=== PATIENT | female | born 1970 | race African-American/Black ===

== ENCOUNTER 2017-10-27 21:44 | Emergency (ER) | payer OTHER ==
[~2017-10-27] VITALS: Ht 165.1 cm; Wt 167.0 kg
[~2017-10-27 21:44] MED LIST: ALPR1 PO; BUPR150T3 PO; FLEX10TA PO; GLUCTAB PO; KETO10 PO; MEVA40TA PO; PAXI20TA PO
[2017-10-27 21:47] VITALS: BP 144/65; PULSE 96; RESP 20; TEMP 97.7; O2SAT 98
[2017-10-28 00:02] VITALS: BP 137/68; PULSE 93; RESP 18; O2SAT 99
[2017-10-28] MEDS ORDERED: SODIUM CHLORIDE 0.9% FLUSH 10 ML FLUSH IVF PRN (00:15)
--- NOTE | 2017-10-28 00:43 | RADRPT ---
EXAM DATE/TIME: 10/28/2017 00:21 [facility] COMPARISON: No previous studies available for comparison. INDICATIONS : Bilateral lower extremity swelling. MEDICAL HISTORY : Diabetes mellitus type II. SURGICAL HISTORY : None. ENCOUNTER: Initial ACUITY: 1 day PAIN SCORE: 0/10 LOCATION: Bilateral chest FINDINGS: A single view of the chest demonstrates the lungs to be symmetrically aerated without evidence of mas s, infiltrate or effusion. The cardiomediastinal contours are unremarkable. Osseous structures are intact. CONCLUSION: No acute disease. Yevgeniy Ahn MD on October 28, 2017 at 0:41 Board Certified Radiologist. This report was verified electronically.
[2017-10-28 01:09] LABS: BILIRUBIN, URINE NEG (NEG); BLOOD, URINE SMALL (NEG); GLUCOSE,URINE NEG (NEG); KETONE, URINE NEG (NEG); MUCUS URINE FEW /lpf (OCC); NITRITE,URINE NEG (NEG); SQUAMOUS EPITHELIAL CELL URINE 1 /hpf (0-5); URINE COLOR YELLOW (YELLW/STRAW); URINE LEUKOCYTE ESTERASE TRACE (NEG)
[2017-10-28 01:25] LABS: ALBUMIN 3.1 GM/DL (3.4-5.0); ALKALINE PHOSPHATASE 85 U/L (45-117); ALT (GPT) 29 U/L (10-53); AST (GOT) 32 U/L (15-37); BICARBONATE 30.2 MEQ/L (21.0-32.0); BLOOD UREA NITROGEN 18 MG/DL (7-18); CALCIUM 8.9 MG/DL (8.5-10.1); CHLORIDE 105 MEQ/L (98-107); CREATININE 0.68 MG/DL (0.50-1.00); GLOMERULAR FILTRATION RATE 113 ML/MIN (>89); GLUCOSE,RANDOM 96 MG/DL (74-106); SODIUM (NA) 138 MEQ/L (136-145); TOTAL BILIRUBIN ADULT 0.3 MG/DL (0.2-1.0); TOTAL PROTEIN 7.6 GM/DL (6.4-8.2)
--- NOTE | 2017-10-28 01:42 | RADRPT ---
EXAM DATE/TIME: 10/28/2017 01:09 [facility] COMPARISON: No previous studies available for comparison. INDICATIONS : Bilateral lower extremity swelling. MEDICAL HISTORY : Hypercholesterolemia. Deep venous thrombosis. Diabetes. SURGICAL HISTORY : Tubal ligation. section. Cardiac catheterization. Lap band. Dilation and curettage. Left knee surgery. Left foot surgery. ENCOUNTER: Subsequent ACUITY: 1 day PAIN SCORE: 4/10 LOCATION: Bilateral legs. TECHNIQUE: Venous ultrasound of the left and right leg was performed from the inguinal ligament to the proximal calf. Real-time, color Doppler and spectral tracing, compression and augmentation techniques were us ed. FINDINGS: RIGHT LEG: There is normal compressibility of the deep venous system from the inguinal region to the proximal ca lf. No echogenic clot is seen in the lumen of the common femoral, femoral, popliteal, and posterior tibial veins. There is a normal response of the venous system to proximal and distal augmentation an d respiration. There is a Ortega's cyst in the right popliteal fossa measuring 6.2 x 1.5 x 2.1 cm. LEFT LEG: There is normal compressibility of the deep venous system from the inguinal region to the proximal ca lf. No echogenic clot is seen in the lumen of the common femoral, femoral, popliteal, and posterior tibial veins. There is a normal response of the venous system to proximal and distal augmentation an d respiration. CONCLUSION: 1. No evidence of deep venous thrombosis. 2. Moderate to large Ortega's cyst in the right popliteal fossa. Yevgeniy Ahn MD on October 28, 2017 at 1:39 Board Certified Radiologist. This report was verified electronically.
[2017-10-28 02:17] LABS: AUTOMATED NEUTROPHIL # 2.8 TH/MM3 (1.8-7.7); BASOPHIL % 0.7 % (0.0-2.0); EOSINOPHIL # 0.3 TH/MM3 (0-0.4); EOSINOPHIL % 5.2 % (0.0-4.0); HEMATOCRIT 36.9 % (35.0-46.0); HEMOGLOBIN 12.4 GM/DL (11.6-15.3); LYMPH % 39.3 % (9.0-44.0); LYMPHOCYTE # 2.3 TH/MM3 (1.0-4.8); MEAN CELL VOLUME 86.8 FL (80.0-100.0); MEAN CORPUSCULAR HEMOGLOBIN 29.1 PG (27.0-34.0); MEAN CORPUSCULAR HGB CONC 33.5 % (32.0-36.0); MEAN PLATELET VOLUME 6.9 FL (7.0-11.0); MONO % 6.7 % (0.0-8.0); MONOCYTE # 0.4 TH/MM3 (0-0.9); NEUT % 48.1 % (16.0-70.0); PLATELET COUNT 361 TH/MM3 (150-450); RED BLOOD COUNT 4.25 MIL/MM3 (4.00-5.30); RED CELL DISTRIBUTION WIDTH 16.2 % (11.6-17.2); WHITE BLOOD COUNT 5.8 TH/MM3 (4.0-11.0)
[2017-10-28 02:23] VITALS: PULSE 86; RESP 18; O2SAT 97
[2017-10-28] MEDS ORDERED: KETOROLAC TROMETHAMINE 30 MG/ML (IVP) VIAL IV PUSH ONE (02:30)
--- NOTE | 2017-10-28 03:23 | PD ---
HPI Chief Complaint: Edema Time Seen by Provider: 23:57 Travel History International Travel<30 days: No Contact w/Intl Traveler<30days: No Traveled to known affect area: No History of Present Illness HPI 47-year-old female reports swelling in the bilateral lower extremities and total body pain. Pain is shooting quality. Severity moderate. Duration has been a few weeks with worsening lately. No chest pain or shortness of breath. Patient wonders if it might be diabetic neuropathy. Associated symptoms include numbness of the bilateral lower extremities chronic in nature. PFSH Past Medical History Arthritis: Yes (POSSIBLE RA) Depression: Yes Cardiac Catheterization: Yes High Cholesterol: Yes Chest Pain: Yes Diabetes: Yes Patient Takes Glucophage: Yes Diminished Hearing: No Deep Vein Thrombosis: Yes Psychiatric: No ?: Not : 1 Para: 1 Dilation and Curettage (D&C): Yes (2002) Tubal Ligation: Yes Past Surgical History Abdominal Surgery: Yes (LAP BAND with Dr. Davis at [facility]) Section: Yes (September 05, 2010) Other Surgery: Yes (lap band surgery, 2008) Social History Alcohol Use: No Tobacco Use: No Substance Use: No Allergies-Medications (Allergen,Severity, Reaction): Coded Allergies: codeine (Unverified Allergy, Severe, GI UPSET, 10/27/17) Reported Meds & Prescriptions Reported Meds & Active Scripts Active Flexeril (Cyclobenzaprine HCl) 10 Mg Tab 10 Mg PO BIDPRN 7 Days Toradol (Ketorolac Tromethamine) 10 Mg Tab 10 Mg PO Q8 Reported Paxil (Paroxetine HCl) 20 Mg Tab 40 Mg PO DAILY Lovastatin 40 Mg Tab 40 Mg PO HS Bupropion Hcl Xl (Bupropion HCl) 150 Mg Tab 300 Mg PO DAILY Xanax 1 Mg Tab (Alprazolam) 1 Mg Tab 0.5 Mg PO QIDPRN Metformin Hcl (Metformin HCl) 500 Mg Tab 500 Mg PO BID Review of Systems Except as stated in HPI: all other systems reviewed are Neg General / Constitutional: No: Fever Cardiovascular: No: Chest Pain or Discomfort, Palpitations Physical Exam Narrative GENERAL: 47-year-old female pleasant well-nourished well-developed mild distress Vital Signs Date Time Temp Pulse Resp B/P (MAP) Pulse Ox O2 Delivery O2 Flow Rate FiO2 10/28/17 02:23 86 18 97 Room Air 10/28/17 00:02 93 18 137/68 (91) 99 Room Air 10/27/17 21:47 97.7 96 20 144/65 (91) 98 Room Air SKIN: Warm and dry. HEAD: Atraumatic. Normocephalic. EYES: Pupils equal and round. No scleral icterus. No injection or drainage. ENT: No nasal bleeding or discharge. Mucous membranes pink and moist. NECK: Trachea midline. No JVD. CARDIOVASCULAR: Regular rate and rhythm. RESPIRATORY: No accessory muscle use. Clear to auscultation. Breath sounds equal bilaterally. GASTROINTESTINAL: Abdomen soft, non-tender, nondistended. Hepatic and splenic margins not palpable. MUSCULOSKELETAL: No sign of DVT. No significant Edema. legs appear symmetric without evidence DVT. NEUROLOGICAL: Awake and alert. No obvious cranial nerve deficits. Motor grossly within normal limits. Five out of 5 muscle strength in the arms and legs. Normal speech. PSYCHIATRIC: Appropriate mood and affect; insight and judgment normal. Data Data Last Documented VS Vital Signs Date Time Temp Pulse Resp B/P (MAP) Pulse Ox O2 Delivery O2 Flow Rate FiO2 10/28/17 02:23 86 18 97 Room Air 10/27/17 21:47 97.7 Vital Signs Date Time Temp Pulse Resp B/P (MAP) Pulse Ox O2 Delivery O2 Flow Rate FiO2 10/28/17 02:23 86 18 97 Room Air 10/28/17 00:02 93 18 137/68 (91) 99 Room Air 10/27/17 21:47 97.7 96 20 144/65 (91) 98 Room Air Orders Orders Complete Blood Count With Diff (10/28/17 00:11) Comprehensive Metabolic Panel (10/28/17 00:11) B-Type Natriuretic Peptide (10/28/17 00:11) Magnesium (Mg) (10/28/17 00:11) Urinalysis - C+S If Indicated (10/28/17 00:11) Iv Access Insert/Monitor (10/28/17 00:11) Ecg Monitoring (10/28/17 00:11) Oximetry (10/28/17 00:11) Oxygen Administration (10/28/17 00:11) Chest, Single Ap (10/28/17 00:11) Sodium Chloride 0.9% Flush (Ns Flush) (10/28/17 00:15) Us Leg Venous Doppler Bilat (10/28/17 ) Ketorolac Inj (Toradol Inj) (10/28/17 02:30) Ed Discharge Order (10/28/17 03:20) Labs Laboratory Tests Test 10/28/17 00:50 10/28/17 01:41 Urine Color YELLOW Urine Turbidity CLEAR Urine pH 6.0 Urine Specific [place] 1.027 Urine Protein NEG mg/dL Urine Glucose (UA) NEG mg/dL Urine Ketones NEG mg/dL Urine Occult Blood SMALL Urine Nitrite NEG Urine Bilirubin NEG Urine Urobilinogen 2.0 MG/DL Urine Leukocyte Esterase TRACE Urine RBC 3 /hpf Urine WBC LESS THAN 1 /hpf Urine Squamous Epithelial Cells 1 /hpf Urine Mucus FEW /lpf Microscopic Urinalysis Comment CULT NOT INDICATED Blood Urea Nitrogen 18 MG/DL Creatinine 0.68 MG/DL Random Glucose 96 MG/DL Total Protein 7.6 GM/DL Albumin 3.1 GM/DL Calcium Level 8.9 MG/DL Magnesium Level 2.0 MG/DL Alkaline Phosphatase 85 U/L Aspartate Amino Transf (AST/SGOT) 32 U/L Alanine Aminotransferase (ALT/SGPT) 29 U/L Total Bilirubin 0.3 MG/DL Sodium Level 138 MEQ/L Potassium Level 4.7 MEQ/L Chloride Level 105 MEQ/L Carbon Dioxide Level 30.2 MEQ/L Anion Gap 3 MEQ/L Estimat Glomerular Filtration Rate 113 ML/MIN White Blood Count 5.8 TH/MM3 Red Blood Count 4.25 MIL/MM3 Hemoglobin 12.4 GM/DL Hematocrit 36.9 % Mean Corpuscular Volume 86.8 FL Mean Corpuscular Hemoglobin 29.1 PG Mean Corpuscular Hemoglobin Concent 33.5 % Red Cell Distribution Width 16.2 % Platelet Count 361 TH/MM3 Mean Platelet Volume 6.9 FL Neutrophils (%) (Auto) 48.1 % Lymphocytes (%) (Auto) 39.3 % Monocytes (%) (Auto) 6.7 % Eosinophils (%) (Auto) 5.2 % Basophils (%) (Auto) 0.7 % Neutrophils # (Auto) 2.8 TH/MM3 Lymphocytes # (Auto) 2.3 TH/MM3 Monocytes # (Auto) 0.4 TH/MM3 Eosinophils # (Auto) 0.3 TH/MM3 Basophils # (Auto) 0.0 TH/MM3 CBC Comment DIFF FINAL Differential Comment B-Type Natriuretic Peptide LESS THAN 2 PG/ML MDM Medical Decision Making Medical Screen Exam Complete: Yes Emergency Medical Condition: Yes Medical Record Reviewed: Yes Differential Diagnosis DVT, electrolyte imbalance, renal insufficiency, UTI and hyperglycemia Narrative Course CBC & BMP Diagram 10/28/17 00:50 Total Protein 7.6, Albumin 3.1 L, Calcium Level 8.9, Magnesium Level 2.0, Alkaline Phosphatase 85, Aspartate Amino Transf (AST/SGOT) 32, Alanine Aminotransferase (ALT/SGPT) 29, Total Bilirubin 0.3 10/28/17 01:41 Last Impressions Chest X-Ray 10/28/17 0011 Signed Impressions: Service Date/Time: October 00:21 - CONCLUSION: No acute disease. Yevgeniy Ahn MD Lower Extremity Ultrasound 10/28/17 0000 Signed Impressions: Service Date/Time: October 01:09 - CONCLUSION: 1. No evidence of deep venous thrombosis. 2. Moderate to large Ortega's cyst in the right popliteal fossa. Yevgeniy Ahn MD The patient is resting comfortably and feels better, is alert and in no distress. The patients results and examination findings were discussed. The repeat examination is unremarkable and benign. The history, exam, diagnostic testing, and current condition do not suggest any significant pathology to warrant further testing, continued ED treatment, admission, or surgical evaluation at this point. The vital signs have been stable. The patient does not have uncontrollable pain, intractable vomiting, or other significant symptoms. The patient's condition is stable and appropriate for discharge. The patient will pursue further outpatient evaluation with a primary care physician or other designated or consulting physician as indicated in the discharge instructions. The patient expressed understanding and was agreeable with this plan. Diagnosis Primary Impression: Leg pain Qualified Codes: M79.604 - Pain in right leg; M79.605 - Pain in left leg Additional Impression: Bakers cyst Qualified Codes: M71.21 - Synovial cyst of popliteal space [Ortega], right knee Referrals: Primary Care Physician 2 days Med/Other Pt SpecificInfo: No Change to Meds Disposition: 01 DISCHARGE HOME Condition: Stable Wilner Oconnor MD Oct 28, 2017 03:23
== END 2017-10-28 04:22 | disposition home or self-care (01) ==
LOC: NEPC 21:44
DX: M79.605 Pain in left leg (principal); M79.604 Pain in right leg; M71.21 Synovial cyst of popliteal space [Baker], right knee; F32.9 Major depressive disorder, single episode, unspecified; E78.00 Pure hypercholesterolemia, unspecified; E11.9 Type 2 diabetes mellitus without complications; Z79.84 Long term (current) use of oral hypoglycemic drugs; Z86.718 Personal history of other venous thrombosis and embolism; R60.0 Localized edema; Z79.899 Other long term (current) drug therapy
CPT/HCPCS: 71045; 80053; 81001; 83735; 83880; 85025; 93970; 96374; 99285; J1885